=== PATIENT | male | born 1945 | race Caucasian/White ===

== ENCOUNTER 2018-10-29 09:58 | Emergency (ER) | payer MEDICARE, OTHER ==
--- OUTSIDE RECORDS SUMMARY | 2018-10-29 10:04 | XMS REPORT | Continuity of Care Document ---
:1945 External Reference #:[id number] Author Name Kelly Davis Care Team Providers Name Role Phone Eric Renee MD Primary Care Physician Unavailable Payers Date Identification Numbers Payment Provider Subscriber Policy Number: [id number] Medicare Cristofer Crane PayID: [id number] [address] [place] [address] Effective: 2017 Policy Number: [id number] [facility] Cristofer Crane Group Number: [id number] [address] PayID: [id number] [place] [address] Expires: 2017 Policy Number: [id number] [facility] Cristofer Crane Group Number: [id number] [address] PayID: [id number] [place] [address] Expires: 2013 Policy Number: [id number] Medicare Cristofer Crane PayID: [id number] [address] [place] [address] Effective: 2011 Policy Number: [id number] [employer] Maile Crane Expires: 2016 PayID: [id number] [address] [address] [place] [address] Expires: 2017 Policy Number: [id number] [employer] Maile Crane PayID: [id number] [address] [address] [place] [address] Advance Directives Description No Information Available Problems Active Problems Provider Date Coronary arteriosclerosis Jesika Smith M.D. Onset: 06/30/2011 Benign essential hypertension Jesika Smith M.D. Onset: 06/30/2011 Patient post percutaneous transluminal Jesika Smith M.D. Onset: 03/2012 coronary angioplasty Hyperlipidemia Jesika Smith M.D. Onset: 06/30/2011 Electrocardiogram abnormal Jesika Smith M.D. Onset: 06/30/2011 Essential hypertension Jesika Smith M.D. Onset: 10/22/2015 Localized, primary osteoarthritis Doug Rayo MD Onset: 12/08/2016 Knee joint effusion Doug Rayo MD Onset: 12/08/2016 Strain of muscle(s) and tendon(s) of Doug Rayo MD Onset: 09/28/2017 the rotator cuff of right shoulder, subsequent encounter Injury of shoulder region Doug Rayo MD Onset: 09/28/2017 Localized, secondary osteoarthritis of Doug Rayo MD Onset: 09/28/2017 the shoulder region Family History Description No Information Available Social History Type Date Description Comments Sex Unknown Marital Status Lives With Spouse Occupation Retired Tobacco Use Start: Unknown End: Former Cigarette Smoker Unknown Smoking Status Reviewed: 10/17/18 Former Cigarette Smoker ETOH Use Denies alcohol use Tobacco Use Start: Unknown End: Patient is a former smoker Unknown Recreational Drug Use Denies Drug Use Exercise Type/Frequency Exercises regularly 3-4x weekly Allergies, Adverse Reactions, Alerts Description No Known Drug Allergies Medications Active Medications SIG Qnty Indications Ordering Provider Date Nitrostat one sl q5min up 25tabs Qutaybeh S. 02/12/2014 0.4mg Tablets to 3 doses as Sera Smith Sub needed Altace 1 by mouth every 90caps Yvon Victor 04/01/2010 2.5mg Capsules day Sera Knight Aspirin 1 PO qd Qutaybpj S. 10/07/2006 81mg Chewtabs Sera Smith Lipitor 1 by mouth every 90tabs Qutaybeh S. 03/09/2006 10mg Tablets day Sera Smith Vitamins/Minerals 1 po qd Unknown Tablets Vit C one po qd Unknown 500mg Cod Liver Oil 1 po qd Unknown Capsules Ibuprofen 200 3 tabs by mouth Unknown 200mg once or twice Tablets daily as needed Pt states he is taking every other day History Medications Nitroglycerin 1 sl q5mins x3 50tabs Qutaybeh S. 11/22/2012 - 0.4mg Tablets as needed for Sera Smith 02/12/2014 Sub chest pain Hydrocodone/Acetaminoph 1/2 to 1 po q6h 40tabs Toby Carrillo M.D. 2011 - en prn pain 02/15/2012 5-325mg Tablets [place] 1-2 tabs po 40tabs Toby Carrillo M.D. 10/29/2011 - 5-325mg Tablets q4-6 h prn pain 02/15/2012 Altace 1 po qd Qutaybeh S. 11/04/2009 - 5mg Capsules eSra Smith 04/01/2010 Altace 1 po qd 90caps Qutaybeh S. 07/24/2009 - 2.5mg Capsules Sera Smith 11/04/2009 Altace 1 PO qd 90caps Qutaybeh S. 06/12/2008 - 5mg Capsules Sera Smith 07/24/2009 Toprol XL 1/2 PO qod 45tabs Qutaybeh S. 11/08/2007 - 25mg Tablets ER Sera Smith 06/30/2011 24HR Toprol XL 1/2 po qd 45tabs Qutaybeh S. 06/08/2006 - 25mg Tablets Sera Smith 11/08/2007 Toprol XL 1 po qd 90tabs Qutaybeh S. 03/09/2006 - 25mg Tablets Sera Smith 06/08/2006 Plavix 1 by mouth 30tabs Qutaybeh S. 03/09/2006 - 75mg Tablets twice weekly Sera Smith 02/10/2017 Altace 1 PO qd 90caps Qutaybeh S. 03/09/2006 - 2.5mg Capsules Sera Smith 06/12/2008 Aspirin 1 PO qd Qutaybeh S. 03/09/2006 - 325mg Tablets Sera Smith 10/07/2006 Toprol XL 1 po qd 30tabs Qutaybeh S. 02/11/2006 - 50mg Tablets Sera Smith 03/09/2006 Imdur one po qam 30tabs Jesika S. 02/11/2006 - 30mg Tablets Sera Smith 03/09/2006 Nitroglyn Sublingual One prn For 30tabs Qutaybeh S. 02/11/2006 - 0.4mg Chest Pain Q 5 Sera Smith 11/22/2012 Tablets Min Max 3. Medications Administered in Office Medication SIG Qnty Indications Ordering Provider Date Triamcinolone (Kenalog) Doug Rayo MD 09/28/2017 Injection Triamcinolone (Kenalog) Doug Rayo MD 02/11/2017 Injection Immunizations Description No Information Available Vital Signs Date Vital Result Comment 10/17/2018 8:27am Height 71 inches 5'11" Weight 203.00 lb Clothes/Shoes Heart Rate 58 /min Radial BP Systolic Sitting 148 mmHg Lue reg cuff BP Diastolic Sitting 70 mmHg Lue reg cuff BP Systolic Standing 144 mmHg Lue reg cuff BP Diastolic Standing 70 mmHg Lue reg cuff BMI (Body Mass Index) 28.3 kg/m2 Ejection Fraction 55% Echo 09/05/2010 05/16/2018 10:05am Height 71 inches 5'11" Weight 190.00 lb Heart Rate 56 /min BP Systolic 138 mmHg BP Diastolic 80 mmHg Respiratory Rate 16 /min Body Temperature 97.0 F BMI (Body Mass Index) 26.5 kg/m2 11/16/2017 4:07pm Height 71 inches 5'11" Weight 189.00 lb w/shoes Heart Rate 66 /min BP Systolic Sitting 130 mmHg lue reg cuff BP Diastolic Sitting 68 mmHg lue reg cuff BMI (Body Mass Index) 26.4 kg/m2 Ejection Fraction 55% echo 09/05/2010 11/09/2017 8:31am Height 71 inches 5'11" Weight 183.00 lb BP Systolic 132 mmHg BP Diastolic 70 mmHg Respiratory Rate 20 /min Pain Level 0 BMI (Body Mass Index) 25.5 kg/m2 09/28/2017 2:00pm Height 71 inches 5'11" Weight 183.00 lb BP Systolic 124 mmHg BP Diastolic 76 mmHg Respiratory Rate 20 /min Pain Level 4 BMI (Body Mass Index) 25.5 kg/m2 03/09/2017 2:48pm Height 71 inches 5'11" Weight 183.00 lb with shoes Heart Rate 62 /min BP Systolic Sitting 128 mmHg LA reg cuff BP Diastolic Sitting 78 mmHg LA reg cuff BMI (Body Mass Index) 25.5 kg/m2 Ejection Fraction 55% echo 09/05/10 03/08/2017 9:36am Heart Rate 66 /min BP Systolic 128 mmHg BP Diastolic 76 mmHg Respiratory Rate 18 /min Body Temperature 98.1 F 02/26/2017 11:16am Heart Rate 68 /min Respiratory Rate 16 /min Body Temperature 97.7 F 02/24/2017 2:25pm Height 72 inches 6'0" Weight 191.00 lb Heart Rate 60 /min BP Systolic 128 mmHg BP Diastolic 76 mmHg Respiratory Rate 18 /min Body Temperature 98.3 F BMI (Body Mass Index) 25.9 kg/m2 02/11/2017 8:28am Weight 191.00 lb Heart Rate 56 /min BP Systolic Sitting 120 mmHg BP Diastolic Sitting 70 mmHg Body Temperature 96.1 F Pain Level 4 01/19/2017 8:38am Height 72 inches 6'0" Weight 195.00 lb BP Systolic 118 mmHg BP Diastolic 76 mmHg Body Temperature 97.6 F Pain Level 0 BMI (Body Mass Index) 26.4 kg/m2 12/25/2016 9:37am Height 72 inches 6'0" Weight 195.00 lb Heart Rate 58 /min Respiratory Rate 15 /min Pain Level 4 BMI (Body Mass Index) 26.4 kg/m2 12/08/2016 1:59pm Height 72 inches 6'0" Weight 195.00 lb Heart Rate 68 /min BP Systolic 130 mmHg BP Diastolic 82 mmHg Respiratory Rate 15 /min Body Temperature 96.5 F Pain Level 4 BMI (Body Mass Index) 26.4 kg/m2 11/12/2016 8:38am Height 72 inches 6'0" Weight 195.00 lb BP Systolic 130 mmHg BP Diastolic 77 mmHg Body Temperature 97.8 F Pain Level 4 BMI (Body Mass Index) 26.4 kg/m2 11/10/2016 1:52pm Height 72 inches 6'0" Weight 195.00 lb BP Systolic 154 mmHg BP Diastolic 82 mmHg Respiratory Rate 15 /min Body Temperature 97.2 F Pain Level 4 BMI (Body Mass Index) 26.4 kg/m2 06/10/2016 3:20pm Height 72 inches 6'0" Weight 190.75 lb with shoes Heart Rate 60 /min BP Systolic Sitting 120 mmHg LA lrg cuff BP Diastolic Sitting 66 mmHg LA lrg cuff BMI (Body Mass Index) 25.9 kg/m2 Ejection Fraction 55% echo 09/05/10 10/22/2015 1:09pm Height 72 inches 6'0" Weight 192.00 lb Heart Rate 64 /min BP Systolic Sitting 138 mmHg LA, reg BP Diastolic Sitting 78 mmHg LA, reg BMI (Body Mass Index) 26.0 kg/m2 Ejection Fraction 55% 09/05/10 12/13/2014 4:13pm Height 72 inches 6'0" Weight 184.00 lb Heart Rate 66 /min BP Systolic 124 mmHg LA reg BP Diastolic 72 mmHg LA reg BMI (Body Mass Index) 25.0 kg/m2 Ejection Fraction 55% 08/26/10 ECHO 05/03/2014 8:57am Height 72 inches 6'0" Weight 189.75 lb Heart Rate 56 /min BP Systolic Sitting 158 mmHg LA, reg BP Diastolic Sitting 70 mmHg LA, reg BMI (Body Mass Index) 25.7 kg/m2 07/31/2013 10:46am Height 72 inches 6'0" Weight 183.00 lb Heart Rate 64 /min BP Systolic Sitting 140 mmHg BP Diastolic Sitting 62 mmHg BMI (Body Mass Index) 24.8 kg/m2 11/22/2012 3:36pm Height 72 inches 6'0" Weight 184.00 lb Heart Rate 50 /min BP Systolic Sitting 112 mmHg BP Diastolic Sitting 62 mmHg Respiratory Rate 16 /min BMI (Body Mass Index) 25.0 kg/m2 02/15/2012 10:23am Height 72 inches 6'0" Weight 178.00 lb Heart Rate 64 /min BP Systolic 100 mmHg BP Diastolic 56 mmHg BMI (Body Mass Index) 24.1 kg/m2 08/14/2011 3:24pm Height 72 inches 6'0" Weight 184.00 lb Heart Rate 47 /min BP Systolic 126 mmHg BP Diastolic 68 mmHg BMI (Body Mass Index) 25.0 kg/m2 06/30/2011 3:11pm Height 72 inches 6'0" Weight 189.00 lb with boots Heart Rate 41 /min BP Systolic 126 mmHg BP Diastolic 80 mmHg BMI (Body Mass Index) 25.6 kg/m2 10/13/2010 4:04pm Height 72 inches 6'0" Weight 183.00 lb Heart Rate 52 /min BP Systolic Sitting 126 mmHg BP Diastolic Sitting 68 mmHg BP Systolic Standing 140 mmHg BP Diastolic Standing 88 mmHg BMI (Body Mass Index) 24.8 kg/m2 04/01/2010 4:07pm Height 72 inches 6'0" Weight 210.00 lb Heart Rate 51 /min BP Systolic Sitting 150 mmHg recheck 144/76 BP Diastolic Sitting 80 mmHg recheck 144/76 BMI (Body Mass Index) 28.5 kg/m2 11/04/2009 2:12pm Height 72 inches 6'0" Weight 208.00 lb Heart Rate 60 /min BP Systolic Sitting 150 mmHg BP Diastolic Sitting 70 mmHg BP Systolic Standing 136 mmHg BP Diastolic Standing 80 mmHg BMI (Body Mass Index) 28.2 kg/m2 08/29/2009 3:10pm Height 72 inches 6'0" Weight 206.00 lb Heart Rate 55 /min BP Systolic Sitting 140 mmHg L BP Diastolic Sitting 70 mmHg L BMI (Body Mass Index) 27.9 kg/m2 11/29/2008 3:19pm Height 72 inches 6'0" Weight 199.00 lb Heart Rate 51 /min BP Systolic Sitting 106 mmHg L BP Diastolic Sitting 60 mmHg L BMI (Body Mass Index) 27.0 kg/m2 06/12/2008 9:14am Height 72 inches 6'0" Weight 195.00 lb Heart Rate 63 /min BP Systolic Sitting 120 mmHg BP Diastolic Sitting 60 mmHg Respiratory Rate 16 /min BMI (Body Mass Index) 26.4 kg/m2 11/08/2007 3:28pm Height 72 inches 6'0" Weight 194.00 lb Heart Rate 42 /min BP Systolic Sitting 120 mmHg BP Diastolic Sitting 64 mmHg Respiratory Rate 16 /min BMI (Body Mass Index) 26.3 kg/m2 04/28/2007 2:39pm Height 72 inches 6'0" Weight 192.00 lb Heart Rate 78 /min BP Systolic Sitting 130 mmHg BP Diastolic Sitting 80 mmHg BMI (Body Mass Index) 26.0 kg/m2 01/13/2007 3:26pm Height 72 inches 6'0" Weight 190.00 lb Heart Rate 60 /min BP Systolic Sitting 114 mmHg L BP Diastolic Sitting 64 mmHg L BMI (Body Mass Index) 25.8 kg/m2 10/07/2006 2:52pm Height 72 inches 6'0" Weight 191.00 lb Heart Rate 52 /min BP Systolic Sitting 100 mmHg BP Diastolic Sitting 70 mmHg BP Systolic Standing 90 mmHg BP Diastolic Standing 64 mmHg BMI (Body Mass Index) 25.9 kg/m2 06/08/2006 2:04pm Height 72 inches 6'0" Weight 189.00 lb Heart Rate 46 /min BP Systolic Sitting 130 mmHg BP Diastolic Sitting 64 mmHg BMI (Body Mass Index) 25.6 kg/m2 03/09/2006 2:43pm Height 72 inches 6'0" Weight 199.00 lb Heart Rate 48 /min BP Systolic Sitting 112 mmHg BP Diastolic Sitting 60 mmHg BP Systolic Standing 112 mmHg BP Diastolic Standing 60 mmHg Respiratory Rate 16 /min BMI (Body Mass Index) 27.0 kg/m2 Results Test Date Facility Test Result H/L Range Note Basic Metabolic 11/03/2017 [facility] Sodium 135 mmol/L Low 139-[address] [place] [address] [phone] Potassium 4.0 mmol/L N 3.5-5.0 Chloride 102 mmol/L N 101-111 Co2 Carbon Dioxide 26 mmol/L N 22-32 Anion Gap 7 mmol/L N 2-11 Glucose 118 mg/dL High 70-100 Blood Urea Nitrogen 23 mg/dL N 6-24 Creatinine 0.86 mg/dL N 0.67-1.17 BUN/Creatinine Ratio 26.7 High 8-20 Calcium 9.1 mg/dL N 8.6-10.3 Egfr Non- 87.7 >60 Egfr 112.7 >60 1 CBC Auto Diff 04/12/2017 [facility] White Blood 7.5 10^3/uL N 3.5-10.[address] [place] [address] [phone] Red Blood Count 4.78 10^6/uL N 4.0-5.4 Hemoglobin 15.1 g/dL N 14.0-18.0 Hematocrit 43 % N 42-52 Mean Corpuscular Volume 90 fL N 80-94 Mean Corpuscular Hemoglobin 32 pg High 27-31 Mean Corpuscular HGB Conc 35 g/dL N 31-36 Red Cell Distribution Width 13 % N 10.5-15 Platelet Count 285 10^3/uL N 150-450 Mean Platelet Volume 8 um3 N 7.4-10.4 Abs Neutrophils 4.2 10^3/uL N 1.5-7.7 Abs Lymphocytes 2.0 10^3/uL N 1.0-4.8 Abs Monocytes 0.7 10^3/uL N 0-0.8 Abs Eosinophils 0.5 10^3/uL N 0-0.6 Abs Basophils 0.1 10^3/uL N 0-0.2 Abs Nucleated RBC 0.01 10^3/uL N Granulocyte % 56.1 % N 38-83 Lymphocyte % 26.4 % N 25-47 Monocyte % 9.8 % High 1-9 Eosinophil % 6.8 % High 0-6 Basophil % 0.9 % N 0-2 Nucleated Red Blood Cells % 0.1 N Basic Metabolic Panel 04/12/2017 [facility] Sodium 140 mmol/L N 133-145 [address] [place] [address] [phone] Potassium 4.7 mmol/L N 3.5-5.0 Chloride 105 mmol/L N 101-111 Co2 Carbon Dioxide 31 mmol/L N 22-32 Anion Gap 4 mmol/L N 2-11 Glucose 113 mg/dL High 70-100 Blood Urea Nitrogen 18 mg/dL N 6-24 Creatinine 0.93 mg/dL N 0.67-1.17 BUN/Creatinine Ratio 19.4 N 8-20 Calcium 9.4 mg/dL N 8.6-10.3 Egfr Non- 80.3 N >60 Egfr 103.3 N >60 2 Lipid Profile 04/12/2017 [facility] Triglycerides 66 mg/dL N 3 (Trig/Chol/HDL) [address] [place] [address] [phone] Cholesterol 141 mg/dL N 4 HDL Cholesterol 45.9 mg/dL N 5 LDL Cholesterol 82 mg/dL N 6 Liver Function 04/12/2017 [facility] Total Protein 7.0 g/dL N 6.4-8.9 Panel [address] [place] [address] [phone] Albumin 3.8 g/dL N 3.2-5.2 Globulin 3.2 g/dL N 2-4 Albumin/Globulin Ratio 1.2 N 1-3 Total Bilirubin 0.50 mg/dL N 0.2-1.0 Direct Bilirubin 0.10 mg/dL N 0.03-0.18 Indirect Bilirubin 0.4 mg/dL N 0.3-1.0 Alkaline Phosphatase 44 U/L N 34-104 Alt 36 U/L N 7-52 Ast 30 U/L N 13-39 Laboratory test 03/02/2017 [facility] Blood Urea 25 mg/dL High 6-[address] [place] [address] [phone] Creatinine 03/02/2017 [facility] Creatinine 0.97 mg/dL N 0.67- 1.[address] [place] [address] [phone] Egfr Non- 76.5 N >60 Egfr 98.4 N >60 7 CBC Auto Diff 02/16/2013 [facility] White Blood 7.2 10^3/uL 4.8-10.[address] [place] [address] [phone] Red Blood Count 4.69 10^6/uL 4.0-5.4 Hemoglobin 14.9 g/dL 14.0-18.0 Hematocrit 43 % 42-52 Mean Corpuscular Volume 92 fL 80-94 Mean Corpuscular Hemoglobin 32 pg High 27-31 Mean Corpuscular HGB Conc 35 g/dL 31-36 Red Cell Distribution Width 13 % 10.5-15 Platelet Count 275 10^3/uL 150-450 Mean Platelet Volume 8 um3 7.4-10.4 Abs Neutrophils 3.3 10^3/uL 1.5-7.7 Abs Lymphocytes 1.9 10^3/uL 1.0-4.8 Abs Monocytes 0.8 10^3/uL 0-0.8 Abs Eosinophils 1.2 10^3/uL High 0-0.6 Abs Basophils 0.1 10^3/uL 0-0.2 Abs Nucleated RBC 0 10^3/uL Granulocyte % 45.3 % 38-83 Lymphocyte % 26.5 % 25-47 Monocyte % 10.7 % High 1-9 Eosinophil % 16.8 % High 0-6 Basophil % 0.7 % 0-2 Nucleated Red Blood Cells % 0.1 Urinalysis 02/16/2013 [facility] Urine Color Yellow [address] [place] [address] [phone] Urine Appearance Clear Urine Specific [place] 1.020 1.010-1.030 Urine Esterase Negative Negative Urine Nitrate Negative Negative Urine Urobilinogen Negative E.U./dL Negative Urine Protein Negative mg/dL Negative Urine pH 6.5 5-9 Urine Blood Negative Negative Urine Ketones Negative mg/dL Negative Urine Bilirubin Negative Negative Urine Glucose Negative mg/dL Negative Liver Function 02/16/2013 [facility] Total Protein 7.0 g/dL 6.2-8.1 Panel [address] [place] [address] [phone] Albumin 3.7 g/dL 3.2-5.2 Globulin 3.3 g/dL 2-4 Albumin/Globulin Ratio 1.1 1-3 Total Bilirubin 0.8 mg/dL 0.4-1.5 Direct Bilirubin 0.1 mg/dL 0.1-0.5 Indirect Bilirubin 0.7 mg/dL 0.3-1.0 Alkaline Phosphatase 41 U/L 30-110 Alt 61 U/L High 14-54 Ast 77 U/L High 12-42 Lipid Profile 02/16/2013 [facility] Triglycerides 44 mg/dL 40 -200 (Trig/Chol/HDL) [address] [place] [address] [phone] Cholesterol 129 mg/dL Less than 200 HDL Cholesterol 39 mg/dL Low 40-60 8 Cholesterol/HDL Ratio 3.3 Average 1-4.44 LDL Cholesterol 81.2 Less Than 100 9 Basic Metabolic Panel 02/16/2013 [facility] Sodium 137 mmol/L 133-145 [address] [place] [address] [phone] Potassium 5.0 mmol/L 3.5-5.0 Chloride 102 mmol/L 101-111 Co2 Carbon Dioxide 31.0 mmol/L 22-32 Anion Gap 4.0 mmol/L 2-11 Glucose 126 mg/dL High 70-100 Blood Urea Nitrogen 16 mg/dL 6-24 Creatinine 1.00 mg/dL 0.50-1.40 BUN/Creatinine Ratio 16.0 8-20 Calcium 9.2 mg/dL 8.1-9.9 Egfr Non- 74.8 >60 Egfr 96.1 >60 10 Liver Function 03/07/2012 [facility] Total Protein 7.1 GM/DL 6.2-8.1 Panel [address] [place] [address] [phone] Albumin 3.8 GM/DL 3.2-5.2 Globulin 3.3 GM/DL 2-4 Albumin/Globulin Ratio 1.2 1-3 Bilirubin Total 0.5 mg/dL 0.4-1.5 11 Bilirubin Direct 0.1 mg/dL 0.1-0.5 Indirect Bilirubin 0.4 mg/dL 0.3-1.0 12 Alkaline Phosphatase 49 U/L 39-117 Alt (SGPT) 49 U/L 17-63 Ast (Sgot) 36 U/L 12-42 Lipid Profile 03/07/2012 [facility] Triglyceride 61 mg/dL 40- 200 (Trig/Chol/HDL) [address] [place] [address] [phone] Cholesterol 137 mg/dL Less Than 200 13 High Density Lipoprotein 44 mg/dL 40-60 14 Cholesterol/HDL Ratio 3.11 AVERAGE 1-4.97 Low Density Lipoprotein 81 mg/dL Less Than 100 15 Basic Metabolic Panel 03/07/2012 [facility] Sodium 139 mmol/L 135-145 [address] [place] [address] [phone] Potassium 5.2 mmol/L High 3.5-5.0 Chloride 107 mmol/L 101-111 Co2 (Carbon Dioxide) 29.0 mmol/L 22-32 Anion Gap 3.0 mmol/L 2-11 16 Glucose 115 mg/dL High 70-100 BUN 23 mg/dL 6-24 Creatinine 1.1 mg/dL 0.50-1.40 One Over Creatinine 0.90 BUN/Creatinine Ratio 20.9 High 8-20 Calcium 9.0 mg/dL 8.1-9.9 eGFR Non- 67.2 > 60 eGFR 86.4 > 60 17 CBC Auto Diff 03/07/2012 [facility] White Blood 5.7 CUMM 4.8- 10.[address] [place] [address] [phone] Red Cell Count 4.51 CUMM Low 4.6-6.2 Hemoglobin 14.0 g/dL 14.0-18.0 Hematocrit 41 % Low 42-52 Mean Corpuscular Volume 91 um3 80-94 Mean Corpuscular Hemoglob 31 pg 27-31 Mean Corpuscular HGB Cone 34 g/dL 32-36 Redcell Distribution WDTH 13 % 10.5-15 Platelet Count 255 CUMM 150-450 Mean Platelet Volume 8.0 um3 7.4-10.4 Gran % 49.0 % 38-83 Lymph % 30.5 % 20-45 Mononuclear % 10.9 % High 1-9 Eosinophil % 8.4 % High 0-6 Basophil % 1.2 % 0-2 Abs Lymphs 1.7 1.0-4.8 Abs Mononuclear 0.6 0-0.8 Absolute Neutrophil Count 2.8 1.5-7.7 Abs Eosinophils 0.5 0-0.6 Abs Basophils 0.1 0-0.2 Urinalysis W/Microscopic 03/07/2012 [facility] Ua Color YELLOW Yellow [address] [place] [address] [phone] Appearance-Urine CLEAR Clear Specific [place]-Ur 1.023 1.010-1.030 Esterase-Urine TRACE Abnormal Negative Nitrite NEGATIVE Negative [id number] NEGATIVE Negative Protein-Urine NEGATIVE Negative PH-Urine 6.0 5-9 Blood-Urine NEGATIVE Negative Ketones-Urine NEGATIVE Negative Bilirubin-Ur NEGATIVE Negative Glucose-Urine NEGATIVE Negative WBC-Urine 0-2 0-5 RBC-Urine 3-5 0-2 Epith Cells-Ur RARE None Crystals-Urine FEW None 18 Laboratory test 03/10/2011 [facility] CPK (Creatine 134 U/L 0 -[address] Kinase) [place] [address] [phone] Creatinine 02/25/2011 [facility] Creatinine 0.9 0.50-1.[address] mg/[place] [address] [phone] One Over Creatinine 1.11 eGFR Non- 85.0 > 60 eGFR 109.3 > 60 19 Lipid Profile 02/10/2011 [facility] Triglyceride 63 mg/dL 40- 200 (Trig/Chol/HDL) [address] [place] [address] [phone] Cholesterol 138 mg/dL Less Than 200 20 High Density Lipoprotein 46 mg/dL 40-60 21 Cholesterol/HDL Ratio 3.00 AVERAGE 1-4.97 Low Density Lipoprotein 79 mg/dL Less Than 100 22 Comp Metabolic Panel 02/10/2011 [facility] Sodium 139 mmol/L 135-[address] [place] [address] [phone] Potassium 4.5 mmol/L 3.5-5.0 Chloride 103 mmol/L 101-111 Co2 (Carbon Dioxide) 31.0 mmol/L 22-32 Anion Gap 5.0 mmol/L 2-11 23 Glucose 103 mg/dL High 70-100 BUN 17 mg/dL 6-24 Creatinine 0.9 mg/dL 0.50-1.40 One Over Creatinine 1.11 BUN/Creatinine Ratio 18.9 8-20 Calcium 9.1 mg/dL 8.1-9.9 Total Protein 7.0 GM/DL 6.2-8.1 Albumin 4.1 GM/DL 3.2-5.2 Globulin 2.9 GM/DL 2-4 Albumin/Globulin Ratio 1.4 1-3 Bilirubin Total 1.0 mg/dL 0.4-1.5 24 Alkaline Phosphatase 47 U/L 39-117 Alt (SGPT) 43 U/L 17-63 Ast (Sgot) 48 U/L High 12-42 eGFR Non- 85.0 > 60 eGFR 109.3 > 60 25 Lipid Panel - JFM 02/10/2011 [facility] CPK (Creatine 453 U/L High 0-[address] Kinase) [place], [place] [address] [phone] Urinalysis 08/16/2010 [facility] Ua Color YELLOW Yellow [address] [place] [address] [phone] Appearance-Urine CLEAR Clear Specific [place]-Ur 1.006 Low 1.010-1.030 Esterase-Urine NEGATIVE Negative Nitrite NEGATIVE Negative Fjcrlsrarwjr-Gw-[id number] NEGATIVE Negative Protein-Urine NEGATIVE Negative PH-Urine 6.0 5-9 Blood-Urine NEGATIVE Negative Ketones-Urine NEGATIVE Negative Bilirubin-Ur NEGATIVE Negative Glucose-Urine NEGATIVE Negative Laboratory test 08/16/2010 [facility] CPK (Creatine 211 U/L High 0-[address] Kinase) [place] [address] [phone] CBC With 08/16/2010 [facility] White Blood 6.7 CUMM 4.8-10.8 Electronic Diff [address] [address] [phone] Red Cell Count 4.45 CUMM Low 4.6-6.2 Hemoglobin 13.7 g/dL Low 14.0-18.0 Hematocrit 40 % Low 42-52 Mean Corpuscular Volume 90 um3 80-94 Mean Corpuscular Hemoglob 31 pg 27-31 Mean Corpuscular HGB Cone 34 g/dL 32-36 Redcell Distribution WDTH 13 % 10.5-15 Platelet Count 256 CUMM 150-450 Mean Platelet Volume 8.6 um3 7.4-10.4 Gran % 56.8 % 38-83 Lymph % 26.0 % 25-47 Mononuclear % 11.1 % High 1-9 Eosinophil % 5.5 % 0-6 Basophil % 0.6 % 0-2 Abs Lymphs 1.7 1.0-4.8 Abs Mononuclear 0.7 0-0.8 Absolute Neutrophil Count 3.8 1.5-7.7 Abs Eosinophils 0.4 0-0.6 Abs Basophils 0 0-0.2 Comp Metabolic Panel 08/16/2010 [facility] Sodium 135 mmol/L 135-[address] [place] [address] [phone] Potassium 4.0 mmol/L 3.5-5.0 Chloride 103 mmol/L 101-111 Co2 (Carbon Dioxide) 28.0 mmol/L 22-32 Anion Gap 4.0 mmol/L 2-11 26 Glucose 103 mg/dL High 70-100 BUN 23 mg/dL 6-24 Creatinine 1.00 mg/dL 0.50-1.40 One Over Creatinine 1.00 BUN/Creatinine Ratio 23.0 High 8-20 Calcium 8.8 mg/dL 8.1-9.9 Total Protein 7.2 GM/DL 6.2-8.1 Albumin 3.9 GM/DL 3.2-5.2 Globulin 3.3 GM/DL 2-4 Albumin/Globulin Ratio 1.2 1-3 Bilirubin Total 0.7 mg/dL 0.4-1.5 27 Alkaline Phosphatase 47 U/L 39-117 Alt (SGPT) 43 U/L 17-63 Ast (Sgot) 38 U/L 12-42 eGFR Non- 75.2 > 60 eGFR 96.7 > 60 28 Lipid Profile 08/16/2010 [facility] Triglyceride 32 mg/dL Low 40-200 (Trig/Chol/HDL) [address] [place] [address] [phone] Cholesterol 120 mg/dL Less Than 200 29 High Density Lipoprotein 42 mg/dL 40-60 30 Cholesterol/HDL Ratio 2.86 AVERAGE 1-4.97 Low Density Lipoprotein 72 mg/dL Less Than 100 31 Liver Function 08/16/2010 [facility] Bilirubin Direct 0.1 mg/dL 0.1-0.5 Panel [address] [place] [address] [phone] Indirect Bilirubin 0.6 mg/dL 0.3-1.0 32 1 Because ethnic data is not always readily available, this report includes an eGFR for both -Americans and non- Americans. The National Kidney Disease Education Program (NKDEP) does not endorse the use of the MDRD equation for patients that are not between the ages of 18 and 70, are , have extremes of body size, muscle mass, or nutritional status, or are non- or non-. According to the National Kidney Foundation, irrespective of diagnosis, the stage of the disease is based on the level of kidney function: Stage Description GFR(mL/min/1.73 m(2)) 1 Kidney damage with normal or decreased GFR 90 2 Kidney damage with mild decrease in GFR 60-89 3 Moderate decrease in GFR 30-59 4 Severe decrease in GFR 15-29 5 Kidney failure <15 (or dialysis) 2 Because ethnic data is not always readily available, this report includes an eGFR for both -Americans and non- Americans. The National Kidney Disease Education Program (NKDEP) does not endorse the use of the MDRD equation for patients that are not between the ages of 18 and 70, are , have extremes of body size, muscle mass, or nutritional status, or are non- or non-. According to the National Kidney Foundation, irrespective of diagnosis, the stage of the disease is based on the level of kidney function: Stage Description GFR(mL/min/1.73 m(2)) 1 Kidney damage with normal or decreased GFR 90 2 Kidney damage with mild decrease in GFR 60-89 3 Moderate decrease in GFR 30-59 4 Severe decrease in GFR 15-29 5 Kidney failure <15 (or dialysis) 3 Desirable: <150 Borderline High: 150-199 High: 200-499 Very High: >500 4 Desirable: <200 Borderline High: 200-239 High: >239 5 Low: <40 Desirable: 40-60 High: >60 6 Desirable: <100 Near Optimal: 100-129 Borderline High: 130-159 High: 160-189 Very High: >189 7 Because ethnic data is not always readily available, this report includes an eGFR for both -Americans and non- Americans. The National Kidney Disease Education Program (NKDEP) does not endorse the use of the MDRD equation for patients that are not between the ages of 18 and 70, are , have extremes of body size, muscle mass, or nutritional status, or are non- or non-. According to the National Kidney Foundation, irrespective of diagnosis, the stage of the disease is based on the level of kidney function: Stage Description GFR(mL/min/1.73 m(2)) 1 Kidney damage with normal or decreased GFR 90 2 Kidney damage with mild decrease in GFR 60-89 3 Moderate decrease in GFR 30-59 4 Severe decrease in GFR 15-29 5 Kidney failure <15 (or dialysis) 8 HDL Interpretation: Undesirable: High Risk: Less than 40 mg/dL Desirable: Low Risk: Greater than 60 mg/dL 9 LDL Interpretation: Low Risk Optimal Level: LDL Less than 100 mg/dL Near or Above Optimal: LDL 100-129 mg/dL Borderline High Risk: LDL 130-159 mg/dL High Risk: LDL 160-189 mg/dL Very High Risk: LDL Greater than 189 mg/dL 10 Because ethnic data is not always readily available, this report includes an eGFR for both -Americans and non- Americans. The National Kidney Disease Education Program (NKDEP) does not endorse the use of the MDRD equation for patients that are not between the ages of 18 and 70, are , have extremes of body size, muscle mass, or nutritional status, or are non- or non-. According to the National Kidney Foundation, irrespective of diagnosis, the stage of the disease is based on the level of kidney function: Stage Description GFR(mL/min/1.73 m(2)) 1 Kidney damage with normal or decreased GFR 90 2 Kidney damage with mild decrease in GFR 60-89 3 Moderate decrease in GFR 30-59 4 Severe decrease in GFR 15-29 5 Kidney failure <15 (or dialysis) 11 A metabolite of Naproxen, O-desmethylnaproxen, has been shown to interfere with the Jendrassik-Mica method for measuring total bilirubin. Samples from patients who have taken Naproxen have shown spurious elevation in total bilirubin levels. 12 Please note updated reference range, effective 01/09/10 13 CHOLESTEROL INTERPRETATION: Desirable: Less than 200 MG/DL Borderline-High Risk: 200-239 MG/DL High-Risk: 240 MG/DL and over 14 HDL INTERPRETATION: Undesirable: High Risk: Less than 40 MG/DL Desirable: Low Risk: Greater than 60 MG/DL 15 LDL INTERPRETATION: Low Risk Optimal Level: LDL Less than 100 MG/DL Near or Above Optimal: LDL 100-129 MG/DL Borderline High Risk: LDL 130-159 MG/DL High Risk: LDL 160-189 MG/DL Very High Risk: LDL Greater than 189 MG/DL 16 Anion gap measurement may be of limited value in the presence of any alkalosis, especially in a combined acid base disorder. . 17 Because ethnic data is not always readily available, this report includes an eGFR for both -Americans and non- Americans. The National Kidney Disease Education Program (NKDEP) does not endorse the use of the MDRD equation for patients that are not between the ages of 18 and 70, are , have extremes of body size, muscle mass, or nutritional status, or are non- or non-. According to the National Kidney Foundation, irrespective of diagnosis, the stage of the disease is based on the level of kidney function: Stage Description GFR(mL/min/1.73 m(2)) 1 Kidney damage with normal or decreased GFR 90 2 Kidney damage with mild decrease in GFR 60-89 3 Moderate decrease in GFR 30-59 4 Severe decrease in GFR 15-29 5 Kidney failure <15 (or dialysis) 18 CALCIUM OXALATE 19 Because ethnic data is not always readily available, this report includes an eGFR for both -Americans and non- Americans. The National Kidney Disease Education Program (NKDEP) does not endorse the use of the MDRD equation for patients that are not between the ages of 18 and 70, are , have extremes of body size, muscle mass, or nutritional status, or are non- or non-. According to the National Kidney Foundation, irrespective of diagnosis, the stage of the disease is based on the level of kidney function: Stage Description GFR(mL/min/1.73 m(2)) 1 Kidney damage with normal or decreased GFR 90 2 Kidney damage with mild decrease in GFR 60-89 3 Moderate decrease in GFR 30-59 4 Severe decrease in GFR 15-29 5 Kidney failure <15 (or dialysis) 20 CHOLESTEROL INTERPRETATION: Desirable: Less than 200 MG/DL Borderline-High Risk: 200-239 MG/DL High-Risk: 240 MG/DL and over 21 HDL INTERPRETATION: Undesirable: High Risk: Less than 40 MG/DL Desirable: Low Risk: Greater than 60 MG/DL 22 LDL INTERPRETATION: Low Risk Optimal Level: LDL Less than 100 MG/DL Near or Above Optimal: LDL 100-129 MG/DL Borderline High Risk: LDL 130-159 MG/DL High Risk: LDL 160-189 MG/DL Very High Risk: LDL Greater than 189 MG/DL 23 Anion gap measurement may be of limited value in the presence of any alkalosis, especially in a combined acid base disorder. . 24 A metabolite of Naproxen, O-desmethylnaproxen, has been shown to interfere with the Jendrassik-Mica method for measuring total bilirubin. Samples from patients who have taken Naproxen have shown spurious elevation in total bilirubin levels. 25 Because ethnic data is not always readily available, this report includes an eGFR for both -Americans and non- Americans. The National Kidney Disease Education Program (NKDEP) does not endorse the use of the MDRD equation for patients that are not between the ages of 18 and 70, are , have extremes of body size, muscle mass, or nutritional status, or are non- or non-. According to the National Kidney Foundation, irrespective of diagnosis, the stage of the disease is based on the level of kidney function: Stage Description GFR(mL/min/1.73 m(2)) 1 Kidney damage with normal or decreased GFR 90 2 Kidney damage with mild decrease in GFR 60-89 3 Moderate decrease in GFR 30-59 4 Severe decrease in GFR 15-29 5 Kidney failure <15 (or dialysis) 26 Anion gap measurement may be of limited value in the presence of any alkalosis, especially in a combined acid base disorder. . 27 A metabolite of Naproxen, O-desmethylnaproxen, has been shown to interfere with the Jendrassik-Mica method for measuring total bilirubin. Samples from patients who have taken Naproxen have shown spurious elevation in total bilirubin levels. 28 Because ethnic data is not always readily available, this report includes an eGFR for both -Americans and non- Americans. The National Kidney Disease Education Program (NKDEP) does not endorse the use of the MDRD equation for patients that are not between the ages of 18 and 70, are , have extremes of body size, muscle mass, or nutritional status, or are non- or non-. According to the National Kidney Foundation, irrespective of diagnosis, the stage of the disease is based on the level of kidney function: Stage Description GFR(mL/min/1.73 m(2)) 1 Kidney damage with normal or decreased GFR 90 2 Kidney damage with mild decrease in GFR 60-89 3 Moderate decrease in GFR 30-59 4 Severe decrease in GFR 15-29 5 Kidney failure <15 (or dialysis) 29 CHOLESTEROL INTERPRETATION: Desirable: Less than 200 MG/DL Borderline-High Risk: 200-239 MG/DL High-Risk: 240 MG/DL and over 30 HDL INTERPRETATION: Undesirable: High Risk: Less than 40 MG/DL Desirable: Low Risk: Greater than 60 MG/DL 31 LDL INTERPRETATION: Low Risk Optimal Level: LDL Less than 100 MG/DL Near or Above Optimal: LDL 100-129 MG/DL Borderline High Risk: LDL 130-159 MG/DL High Risk: LDL 160-189 MG/DL Very High Risk: LDL Greater than 189 MG/DL 32 Please note updated reference range, effective 01/09/10 Procedures Date Code Description Status 10/17/2018 59171 EKG Tracing & Interpretation Completed 11/16/2017 26057 EKG Tracing & Interpretation Completed 09/28/2017 67687 Inject/Drain Joint/Bursa Major W/O US Completed 03/09/2017 89907 EKG Tracing & Interpretation Completed 02/11/2017 02672 Inject/Drain Joint/Bursa Major W/O US Completed 06/10/2016 20550 EKG Tracing & Interpretation Completed 10/22/2015 98082 EKG Tracing & Interpretation Completed 12/13/2014 85788 EKG Tracing & Interpretation Completed 05/03/2014 86482 EKG Tracing & Interpretation Completed 07/31/2013 84356 EKG Tracing & Interpretation Completed 11/22/2012 16629 EKG Tracing & Interpretation Completed 02/15/2012 58674 EKG Tracing & Interpretation Completed 11/05/2011 21267 Arthroscopy,Knee,Meniscectomy Medial Or Lateral Completed 11/05/2011 47138 Arthroscopy,Knee,Meniscectomy Medial Or Lateral Completed 08/14/2011 87921 EKG Tracing & Interpretation Completed 08/10/2011 94448 Xray Knee 3 Views Completed 08/10/2011 86975 Rad Exam; Knee, Ap&L Completed 07/13/2011 09874 Holter Monitoring 24 HR New Completed 06/30/2011 90049 EKG Tracing & Interpretation Completed 09/05/2010 07938 ECHO Transthoracic, Real-Time 2D With Doppler And Color Completed Flow 09/03/2010 79198 ECHO Stress Test Incl Perf Contiuous ekg Monitoring W/Phys Completed Superv 04/01/2010 84805 EKG Tracing & Interpretation Completed 10/29/2009 24230 Arthroscopy,Knee,Meniscectomy Medial Or Lateral Completed 10/29/2009 83257 Arthroscopy,Knee,Meniscectomy Medial Or Lateral Completed 09/04/2009 92171 Rad Exam; Knee Comp Completed 08/29/2009 27119 EKG Tracing & Interpretation Completed 11/29/2008 57656 EKG Tracing & Interpretation Completed 11/23/2008 40886 ECHO Stress Test Incl Perf Contiuous ekg Monitoring W/Phys Completed Superv 11/23/2008 41553 ECHO Stress Test Incl Perf Contiuous ekg Monitoring W/Phys Completed Superv 11/21/2008 79051 ECHO Transthorasic Realtime 2D W Doppler & Color Flow Hosp Completed 06/12/2008 14195 EKG Tracing & Interpretation Completed 11/08/2007 89260 EKG Tracing & Interpretation Completed 11/02/2007 99519 Echocardiogram Completed 11/02/2007 78785 Echocardiogram Completed 11/02/2007 74009 Pulse Doppler & Continuous Wave Completed 11/02/2007 35536 Color Doppler Completed 11/02/2007 60273 Color Doppler Completed 10/28/2007 19455 ECHO/Stress Completed 10/28/2007 30387 ECHO/Stress Completed 10/28/2007 54692 ECHO/Stress Completed 10/28/2007 42822 Stress Test Completed 10/28/2007 54453 Stress Test Completed 04/28/2007 29537 EKG Tracing & Interpretation Completed 04/28/2007 28054 EKG Tracing & Interpretation Completed 10/12/2006 31626 ECHO/Stress Completed 10/12/2006 49726 Color Doppler Completed 10/12/2006 98480 Color Doppler Completed 10/12/2006 18346 Pulse Doppler & Continuous Wave Completed 10/12/2006 26973 Echocardiogram Completed 10/12/2006 41373 Echocardiogram Completed 10/12/2006 64054 Stress Test Completed 10/12/2006 32854 Stress Test Completed 10/07/2006 26423 EKG Tracing & Interpretation Completed 10/07/2006 82176 EKG Tracing & Interpretation Completed 06/08/2006 83126 EKG Tracing & Interpretation Completed 06/08/2006 75989 EKG Tracing & Interpretation Completed 02/17/2006 19482 EKG, Interpretation Only Completed 02/17/2006 54000 EKG, Interpretation Only Completed 02/17/2006 56700 Left Heart Catheterization Completed 02/17/2006 86363 Inj Proc LFT Vent/LFT Atrl Angio Completed 02/17/2006 99862 Inj Proc LFT Vent/LFT Atrl Angio Completed 02/17/2006 46542 Coronary Angiography Completed 02/17/2006 36995 S/I/R Inj Proc Vent And Or Atrial Completed 02/17/2006 72702 S/I/R Inj Proc Vent And Or Atrial Completed 02/17/2006 19540 Selective Coronary Angioplasty Completed 02/11/2006 88864 ECHO/Stress Completed 02/11/2006 23984 ECHO/Stress Completed 02/11/2006 58380 Color Doppler Completed 02/11/2006 92421 Pulse Doppler & Continuous Wave Completed 02/11/2006 14555 Pulse Doppler & Continuous Wave Completed 02/11/2006 53947 Echocardiogram Completed 02/11/2006 03912 Stress Test Completed Encounters Type Date Location Provider Dx Diagnosis Office Visit 05/16/2018 [facility], R10.31 Right lower 9:30a Of Nora MARADIAGA, FACS quadrant pain [facility] 4:20p Sera Smith disease of [place] coronary artery w/o ang pctrs I10 Essential (primary) hypertension Z98.61 Coronary angioplasty status E78.4 Other hyperlipidemia R94.31 Abnormal electrocardiogram [ECG] [EKG] Office Visit 11/09/2017 [facility] Doug Rayo, M19.211 Secondary 8:30a Services Of MD toscano C.M.A. right shoulder S46.011D Strain of musc/tend the rotator cuff of right shoulder, subs S46.101A Unsp injury of musc/fasc/tend long hd bicep, right arm, init S46.111D Strain of musc/fasc/tend long hd bicep, right arm, subs Office Visit 03/09/2017 3:00p [facility] S. 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 right shoulder M25.511 Pain in right shoulder M19.011 Primary osteoarthritis, right shoulder Office Visit 01/19/2017 Orthopedic Marcel M19.172 Post-traumatic 8:45a Services Of Sera Vincent, left C.M.A. 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 knee M25.461 Effusion, right knee Office Visit 11/12/2016 [facility] Marcel M19.072 Primary 8:30a Services Of Sera Vincent osteoarthritis, left C.M.A. ankle and foot Office Visit 11/10/2016 [facility] Doug Rayo, M17.11 Unilateral primary 1:30p Services Of osteoarthritis, C.M.A. right knee Office Visit 06/10/2016 [facility] S. I25.10 [facility] 3:40p Cardiology Luis, of [place] coronary M.D. artery w/o ang pctrs I10 Essential (primary) hypertension Z98.61 Coronary angioplasty status E78.4 Other hyperlipidemia Office Visit 10/22/2015 1:20p [facility] S. 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 414.01 Coronary 4:20p Christelle Smith M.D. Atherosclerosis [place] 401.1 Hypertension Benign V45.82 Percutaneous Transluminal Coronary Angioplas Postsurg Status 272.4 Hyperlipidemia Other Unspec Office Visit 05/03/2014 [facility] S. 414.01 Coronary 9:00a Christelle Smith M.D. Atherosclerosis [place] 401.1 Hypertension Benign V45.82 Percutaneous Transluminal Coronary Angioplas Postsurg Status 272.4 Hyperlipidemia Other Unspec Office Visit 07/31/2013 [facility] S. 414.01 Coronary 11:00a Christelle Smith M.D. Atherosclerosis [place] 401.1 Hypertension Benign V45.82 Percutaneous Transluminal Coronary Angioplas Postsurg Status 272.4 Hyperlipidemia Other Unspec Office Visit 11/22/2012 [facility] S. 414.01 Coronary 3:30p Christelle Smith M.D. Atherosclerosis [place] 401.1 Hypertension Benign V45.82 Percutaneous Transluminal Coronary Angioplas Postsurg Status 272.4 Hyperlipidemia Other Unspec 794.31 Electrocardiogram (ECG) (EKG) Abnormal Office Visit 02/15/2012 [facility] S. 414.01 Coronary 10:40a Cardiology Maghaydah, M.D. Atherosclerosis [place] 401.1 Hypertension Benign V45.82 Percutaneous Transluminal Coronary Angioplas Postsurg Status 272.4 Hyperlipidemia Other Unspec Office Visit 10/19/2011 Orthopedic Toby Carrillo, 836.0 Dislocation Knee 9:30a Services Of Sera Tear Of Medial C.M.A. Cartilage Or Meniscus Curr Office Visit 09/10/2011 Orthopedic Yinka Krueger 836.0 Dislocation Knee 11:00a Services Of Samantha Tear Of Medial C.M.A. RPA-C Cartilage Or Meniscus Curren Office Visit 08/14/2011 Saira Cruz 427.81 Sinoatrial Node 3:00p Cardiology Parmenter, Dysfunction N.P. Office Visit 08/10/2011 [facility]opedic Toby Carrillo, 836.0 Dislocation Knee 3:00p Services Of Sera Tear Of Medial C.M.A. Cartilage Or Meniscus Curr Office Visit 06/30/2011 Saira Canchola S. 414.01 Coronary 3:30p Eboni Fournier M.D. [place] 401.1 Hypertension Benign V45.82 Percutaneous Transluminal Coronary Angioplas Postsurg Status 272.4 Hyperlipidemia Other Unspec 794.31 Electrocardiogram (ECG) (EKG) Abnormal 780.4 Dizziness & Giddiness Office Visit 10/13/2010 Saira Canchola S. 414.01 Coronary 4:00p Christelle Smith M.D. Atherosclerosis [place] 401.1 Hypertension Benign V45.82 Percutaneous Transluminal Coronary Angioplas Postsurg Status 272.4 Hyperlipidemia Other Unspec Office Visit 09/03/2010 Saira Canchola S. 414.01 Coronary 11:30a Christelle Smith M.D. Atherosclerosis [place] 401.1 Hypertension Benign 272.4 Hyperlipidemia Other Unspec V45.82 Percutaneous Transluminal Coronary Angioplas Postsurg Status Office Visit 04/01/2010 Saira Canchola S. 414.01 Coronary 4:00p Christelle Smith M.D. Atherosclerosis [place] 401.1 Hypertension Benign 272.4 Hyperlipidemia Other Unspec V45.82 Percutaneous Transluminal Coronary Angioplas Postsurg Status Office Visit 11/04/2009 Saira Canchola S. 414.01 Coronary 2:20p Christelle Smith M.D. Atherosclerosis [place] 401.1 Hypertension Benign 272.4 Hyperlipidemia Other Unspec Office Visit 10/23/2009 3:45p Orthopedic Dirk Gerardo, 836.0 Dislocation Knee Services Of Sera Tear Of Medial C.M.A. Cartilage Or Meniscus Curren 844.1 Sprains & Strains Knee Medial Collateral Ligament Office 10/11/2009 Orthopedic Renée, 836.0 Dislocation Knee Visit 4:00p Services Of Julien Tear Of Medial C.M.A. R.S.A.-O Cartilage Or Meniscus Curren Office 09/04/2009 Orthopedic Renée, 844.1 Sprains & Strains Visit 3:00p Services Of Henryopher, Knee Medial C.M.A. R.S.A.-O Collateral Ligament Office 08/29/2009 Saira Canchola S. 414.01 Coronary Visit 3:20p Christelle Smith M.D. Atherosclerosis [place] 401.1 Hypertension Benign V45.82 Percutaneous Transluminal Coronary Angioplas Postsurg Status 272.4 Hyperlipidemia Other Unspec Office Visit 11/29/2008 Saira Canchola S. 414.01 Coronary 3:20p Christelle Smith M.D. Atherosclerosis [place] V45.82 Percutaneous Transluminal Coronary Angioplas Postsurg Status 401.1 Hypertension Benign 272.4 Hyperlipidemia Other Unspec Office Visit 06/12/2008 Saira Canchola S. 401.1 Hypertension 9:10a Christelle Smith M.D. Benign 272.4 Hyperlipidemia Other Unspec 414.01 Coronary Atherosclerosis [place] V45.82 Percutaneous Transluminal Coronary Angioplas Postsurg Status Office Visit 11/08/2007 Saira Canchola S. 414.01 Coronary 3:20p Christelle Smith M.D. Atherosclerosis [place] 401.1 Hypertension Benign 272.4 Hyperlipidemia Other Unspec V45.82 Percutaneous Transluminal Coronary Angioplas Postsurg Status 794.31 Electrocardiogram (ECG) (EKG) Abnormal Office Visit 04/28/2007 Saira Canchola S. 414.01 Coronary 2:40p Christelle Smith M.D. Atherosclerosis [place] 401.1 Hypertension Benign 272.4 Hyperlipidemia Other Unspec V45.82 Percutaneous Transluminal Coronary Angioplas Postsurg Status 427.69 Premature Beats Other 794.31 Electrocardiogram (ECG) (EKG) Abnormal Office Visit 01/13/2007 Saira Canchola S. 414.01 Coronary 3:40p Cardiology Sera Smith Atherosclerosis [place] 401.1 Hypertension Benign 272.4 Hyperlipidemia Other Unspec V45.82 Percutaneous Transluminal Coronary Angioplas Postsurg Status Office Visit 10/07/2006 Saira Canchola S. 414.01 Coronary 3:00p Cardiology Sera Smith Atherosclerosis [place] 427.69 Premature Beats Other 272.4 Hyperlipidemia Other Unspec Office Visit 06/08/2006 Saira Canchola S. 414.01 Coronary 2:00p Cardiology Sera Smith Atherosclerosis [place] 401.1 Hypertension Benign 272.4 Hyperlipidemia Other Unspec Office Visit 03/09/2006 Saira Canchola S. 414.01 Coronary 2:40p Cardiology Sera Smith Atherosclerosis [place] 401.1 Hypertension Benign 272.4 Hyperlipidemia Other Unspec Office Visit 02/11/2006 8:30a [facility]ika S. 786.50 Pain Chest Sera Smith Unspec 794.31 Electrocardiogram (ECG) (EKG) Abnormal 794.30 Cardiovascular Function Study Unspec Abnormal 401.0 Hypertension Malignant Plan of Treatment 10/17/2018 - Jesika Smith M.D.I25.10 Atherosclerotic heart disease of [place] coronary artery withFollow up:one yr ovI10 Essential (primary) [id number] Coronary angioplasty [id number] Hyperlipidemia, unspecified
[2018-10-29 10:20] VITALS: BP 151/76
--- NOTE | 2018-10-29 11:12 | UC ---
Respiratory Complaint HPI - HPI Summary HPI Summary: 73 year old male presents with mild congestion, cough- intermittently productive , fatigue, body aches, GI= nausea/ indigestion. S/S x 3 days. recently sick with bronchitis. no fever, chills. denies sinus pain, throat pain, ear pain NO SOB - History of Current Complaint Chief Complaint: UCGeneralIllness Stated Complaint: THROAT,SINUSES Time Seen by Provider: 10/29/18 10:21 Hx Obtained From: Patient Onset/Duration: Sudden Onset, Lasting Days - x 3 days Timing: Constant Severity Initially: Mild Severity Currently: None Pain Intensity: 0 Pain Scale Used: 0-10 Numeric Character: Cough: Productive Aggravating Factors: Deep Breaths - Allergies/Home Medications Allergies/Adverse Reactions: Allergies Allergy/AdvReac Type Severity Reaction Status Date / Time No Known Allergies Allergy Verified 10/29/18 10:20 Home Medications: Home Medications Chitina-3 Fatty Acids/Fish Oil [Fish Oil 1,000 mg Softgel] 1 each PO DAILY [History Confirmed 10/29/18] PMH/Surg Hx/FS Hx/Imm Hx Previously Healthy: Yes - Surgical History Surgical History: Yes Surgery Procedure, Year, and Place: 2 knee surgeries,. 2 hernia operations. 7 cardiac stents - Family History Known Family History: Positive: Cardiac Disease, Hypertension - Social History Alcohol Use: None Substance Use Type: None Smoking Status (MU): Former Smoker Type: Cigarettes When Did the Patient Quit Smoking/Using Tobacco: 25 years ago Review of Systems All Other Systems Reviewed And Are Negative: Yes Constitutional: Positive: Fatigue Respiratory: Positive: Cough Is Patient Immunocompromised?: No Physical Exam Triage Information Reviewed: Yes Appearance: No Pain Distress, Well-Nourished, Ill-Appearing - mild Vital Signs: Initial Vital Signs Temp 98.9 F 10/29/18 10:17 Pulse 67 10/29/18 10:17 Resp 16 10/29/18 10:17 BP 151/76 10/29/18 10:17 Pulse Ox 97 10/29/18 10:17 Vital Signs Reviewed: Yes Eyes: Positive: Conjunctiva Clear ENT: Positive: Pharynx normal, TMs normal, Uvula midline. Negative: TM bulging , TM dull, TM red, Tonsillar swelling, Tonsillar exudate, Sinus tenderness Dental Exam: Normal Neck exam: Normal Neck: Positive: Supple, Nontender, No Lymphadenopathy. Negative: Nuchal Rigidity, Enlarged Nodes @ Respiratory: Positive: Chest non-tender, Lungs clear, Normal breath sounds, No respiratory distress, No accessory muscle use. Negative: Crackles, Rhonchi, Stridor, Wheezing, Expiration Cardiovascular: Positive: RRR, No Murmur Musculoskeletal Exam: Normal Psychological Exam: Normal Skin Exam: Normal Respiratory Course/Dx - Course Course Of Treatment: - Likely viral bronchitis- conservative treatment including increasing fluids, over the counter medications such as cough medication, throat lozenges, humidifer at night to help with symptoms - GO to ER with shortness of breath, fever > 101, chest pain - Symptoms likely to continue for 5-7 days since onset. - Differential Dx/Diagnosis Differential Diagnosis/HQI/PQRI: Lower Resp Infection Provider Diagnosis: Viral URI Discharge - Sign-Out/Discharge Documenting (check all that apply): Patient Departure All imaging exams completed and their final reports reviewed: No Studies - Discharge Plan Condition: Good Disposition: HOME Patient Education Materials: Viral Syndrome (ED) Referrals: Eric Renee MD [Primary Care Provider] - Additional Instructions: - Likely viral bronchitis- conservative treatment including increasing fluids, over the counter medications such as cough medication, throat lozenges, humidifer at night to help with symptoms - GO to ER with shortness of breath, fever > 101, chest pain - Symptoms likely to continue for 5-7 days since onset. - Billing Disposition and Condition Condition: GOOD Disposition: Home
== END 2018-10-29 11:15 | disposition home or self-care (01) ==
LOC: UCEAST 09:58
DX: J06.9 Acute upper respiratory infection, unspecified (principal); Z95.5 Presence of coronary angioplasty implant and graft; Z87.891 Personal history of nicotine dependence
CPT/HCPCS: 99211; G0463

== ENCOUNTER 2018-11-13 14:56 | Emergency (ER) | payer MEDICARE, OTHER ==
[2018-11-13 15:03] VITALS: BP 165/93
--- NOTE | 2018-11-13 15:56 | UC ---
Abdominal Pain Male HPI - HPI Summary HPI Summary: Patient with a complex medical history including 7 cardiac stents, hypertension , borderline diabetes, and an abdominal aneurysm that is getting annual evaluation. Patient states for past 3 weeks he was diagnosed with viral bronchitis and had malaise. Patient states he started to feel better until last Wednesday when he had copious watery diarrhea. No blood no blood. Patient states this time he just has not felt well. Patient states his belly feels diffusely discomfort. Patient has had belching. Patient with nausea. Patient's been forcing himself to eat and drink. Patient has not had a bowel movement since this time. No fever. Patient states he just feels is not getting better. Patient's medications reviewed this visit. pt has had normal colonoscopies - History of Current Complaint Chief Complaint: UCGI Stated Complaint: ABD PAIN Time Seen by Provider: 11/13/18 15:14 Hx Obtained From: Patient, Medical Records - PT with 4.4cm AAA 10/2017 Severity Initially: Mild Severity Currently: None Pain Intensity: 0 Pain Scale Used: 0-10 Numeric - Allergies/Home Medications Allergies/Adverse Reactions: Allergies Allergy/AdvReac Type Severity Reaction Status Date / Time No Known Allergies Allergy Verified 10/29/18 10:20 PMH/Surg Hx/FS Hx/Imm Hx Previously Healthy: Yes Endocrine History: Diabetes Cardiovascular History: Cardiac Disease, Hypertension - Surgical History Surgical History: Yes Surgery Procedure, Year, and Place: 2 knee surgeries,. 2 hernia operations. 7 cardiac stents - Family History Known Family History: Positive: Cardiac Disease, Hypertension - Social History Occupation: Retired Lives: With Family Alcohol Use: None Substance Use Type: None Smoking Status (MU): Former Smoker Type: Cigarettes When Did the Patient Quit Smoking/Using Tobacco: 25 years ago Review of Systems All Other Systems Reviewed And Are Negative: Yes Constitutional: Positive: Fatigue Skin: Positive: Negative Eyes: Positive: Negative ENT: Positive: Negative Respiratory: Positive: Negative Cardiovascular: Positive: Negative Gastrointestinal: Positive: Abdominal Pain, Diarrhea, Other - belching, flatus Physical Exam - Summary Physical Exam Summary: Vital Signs Reviewed: Yes A+Ox3, no distress Eyes: Conjunctiva Clear, MARIANGEL. EOM intact and full ENT: Hearing grossly normal TM x 2 clear, mmoist, uvula midline, no exudate, no erythema Neck: Positive: Supple Respiratory: Positive: No respiratory distress, No accessory muscle use + CTA throughout no w/r Cardiovascular: RRR nl s1, s2 no m/r CBT <2 sec abd soft Dec BS, mild diffuse tendernes, nd no guarding, no distension Musculoskeletal Exam: [place] x 4 without difficulty Strength Intact, ROM Intact Neurological: Positive: Alert, + sensation throughout Psychological: Positive: Normal Response To Family Skin: Positive: no rash, no ecchymosis Triage Information Reviewed: Yes Vital Signs: Initial Vital Signs Temp 98.3 F 11/13/18 14:59 Pulse 64 11/13/18 14:59 Resp 16 11/13/18 14:59 BP 165/93 11/13/18 14:59 Pulse Ox 99 11/13/18 14:59 Abd Pain Male Course/Dx - Course Course Of Treatment: Patient presents to urgent care with his . Patient reports several days of increasing malaise, diffuse belly pain, belching. Patient states he watery diarrhea Wednesday nothing since. No recent travel or antibiotic. Patient states he just has no injury G and his belly continues to have mild diffuse discomfort. On exam vital signs are stable. Patient does have mild diffuse discomfort in his belly. Nothing focal on exam. Patient's urinalysis completely normal. After discussing the patient recommended to emergency department for additional evaluation and treatment. This will likely include labs and imaging studies. I did speak to speak called to the charge nurse in the ED who states understanding and awareness of the patient. Patient's will drive him. Pt with elevated BP- h/o same - Differential Dx/Clinical Impression Provider Diagnosis: Abdominal pain Discharge - Sign-Out/Discharge Documenting (check all that apply): Patient Departure All imaging exams completed and their final reports reviewed: No Studies - Discharge Plan Condition: Stable Disposition: HOME-RECOMMEND TO ED Patient Education Materials: Acute Abdominal Pain (ED) Referrals: Eric Renee MD [Primary Care Provider] - Additional Instructions: The doctor that evaluated you today thinks that you need additional testing that can be completed the emergency department. It is recommended that you go directly to emergency department for further evaluation. This evaluation may include blood work or imaging. This testing will be directed and decided by the provider that evaluate you at the emergency department. If pain becomes worse, you feel lightheaded, you have uncontrolled vomiting, or you have any other concerns while you are being driven to emergency department as recommended to carson and contact 911. - Billing Disposition and Condition Condition: STABLE Disposition: Home-Recommend to ED
== END 2018-11-13 15:48 | disposition home health service (06) ==
LOC: UCEAST 14:56
DX: R10.9 Unspecified abdominal pain (principal); R53.81 Other malaise; R14.2 Eructation; I10 Essential (primary) hypertension; R73.03 Prediabetes; Z87.891 Personal history of nicotine dependence; Z95.5 Presence of coronary angioplasty implant and graft; N39.0 Urinary tract infection, site not specified; I71.4 Abdominal aortic aneurysm, without rupture; R53.1 Weakness; R00.1 Bradycardia, unspecified
CPT/HCPCS: 81003; 99212; G0463

== ENCOUNTER 2018-11-13 16:06 | Emergency (ER) | payer MEDICARE, OTHER ==
--- NOTE | 2018-11-13 16:28 | ED ---
Abdominal Pain/Male - HPI Summary HPI Summary: This patient is a 73 year old M presenting to ED with a chief complaint of abdominal pain since 3-4 days ago. The CC is described as dull. Patient had diarrhea on 11/10 and 11/11 but no bowel movements since. Prior to the diarrhea, patient had viral bronchitis for two weeks. The patient rates the pain 5/10 in severity. Symptoms aggravated by nothing. Symptoms alleviated by nothing. Patient reports generalized weakness, excessive burping, flatulence, nausea, decreased appetite. Patient denies vomiting, CP. Patient still has appendix. PMHx of 7 stents in heart, aortic aneurysm of ~2cm per patient, HTN. FHx for cardiac disease, HTN. Patient does not use alcohol or substances, but is a former smoker. - History of Current Complaint Chief Complaint: EDAbdPain Stated Complaint: ABD PAIN PER PT Time Seen by Provider: 11/13/18 16:13 Hx Obtained From: Patient Onset/Duration: Lasting Days - 3-4 days ago, Still Present Timing: Constant Severity Initially: Moderate Severity Currently: Moderate Pain Intensity: 5 Pain Scale Used: 0-10 Numeric Radiates: No Character: Dull Aggravating Factor(s): Nothing Alleviating Factor(s): Nothing Associated Signs And Symptoms: Positive: Decreased Appetite, Nausea, Diarrhea - 3-4 days ago, no bowel movements since diarrhea stopped, Other - Generalized weakness, excessive burping, flatulence. Negative: Chest Pain, Vomiting - Allergies/Home Medications Allergies/Adverse Reactions: Allergies Allergy/AdvReac Type Severity Reaction Status Date / Time No Known Allergies Allergy Verified 11/13/18 16:12 PMH/Surg Hx/FS Hx/Imm Hx Endocrine/Hematology History: Denies: Hx Diabetes, Hx Thyroid Disease Cardiovascular History: Reports: Hx Hypertension - ON MEDICATION Denies: Hx Pacemaker/ICD Respiratory History: Denies: Hx Asthma, Hx Chronic Obstructive Pulmonary Disease (COPD) GI History: Denies: Hx Ulcer History: Denies: Hx Renal Disease Sensory History: Denies: Hx Hearing Aid Psychiatric History: Denies: Hx Panic Disorder - Cancer History Cancer Type, Location and Year: cholesterol - Surgical History Surgery Procedure, Year, and Place: 2 knee surgeries,. 2 hernia operations. 7 cardiac stents Infectious Disease History: No Infectious Disease History: Reports: Hx Shingles - 2017. since vaccinated Denies: Hx Hepatitis, Hx Human Immunodeficiency Virus (HIV), History Other Infectious Disease, Traveled Outside the [place] in Last 30 Days - Family History Known Family History: Positive: Cardiac Disease, Hypertension - Social History Alcohol Use: None Hx Substance Use: No Substance Use Type: Reports: None Hx Tobacco Use: Yes Smoking Status (MU): Former Smoker Type: Cigarettes Review of Systems All Other Systems Reviewed And Are Negative: Yes Physical Exam - Summary Physical Exam Summary: Appearance: Well appearing, no pain distress Skin: warm, dry, reflects adequate perfusion Head/face: normal Eyes: EOMI, MARIANGEL ENT: normal Neck: supple, non-tender Respiratory: CTA, breath sounds present Cardiovascular: RRR, pulses symmetrical Abdomen: LLQ tenderness Musculoskeletal: normal, strength/ROM intact Neuro: normal, sensory motor intact, A&Ox3 Triage Information Reviewed: Yes Vital Signs On Initial Exam: Initial Vitals Temp Pulse Resp BP Pulse Ox 98.5 F 60 18 160/87 97 11/13/18 16:08 11/13/18 16:08 11/13/18 16:08 11/13/18 16:08 11/13/18 16:08 Vital Signs Reviewed: Yes Diagnostics - Vital Signs Vital Signs Temp Pulse Resp BP Pulse Ox 11/13/18 16:08 98.5 F 60 18 160/87 97 - Laboratory Result Diagrams: 11/13/18 16:58 11/13/18 16:58 Lab Statement: Any lab studies that have been ordered have been reviewed, and results considered in the medical decision making process. - Radiology CXR Radiology Interpretation Completed By: Radiologist Summary of Radiographic Findings: No evidence for acute intrathoracic disease. Dr. Barillas has reviewed this radiology report. - CT A/P CT Interpretation Completed By: Radiologist Summary of CT Findings: 1. No CT findings to correlate with patient's symptomatology. Specifically no diverticulitis. 2. Infrarenal fusiform aortic aneurysm. No fracture. Dr. Barillas has reviewed this radiology report. - EKG 1619 Cardiac Rate: Bradycardia - 56 BPM EKG Rhythm: Sinus Bradycardia Summary of EKG Findings: Sinus bradycardia at 56 BPM, no acute changes. Re-Evaluation - Re-Evaluation First Eval Re-Evaluation Time: 19:26 Comment: Discussed results with patient. Patient will be discharged home with dx of UTI. Patient understands and agrees with this plan. Abdominal Pain Male Course/Dx - Course Course Of Treatment: This patient is a 73 year old M presenting to ED with a chief complaint of abdominal pain since 3-4 days ago. In the ED, patient received fluids. Blood work/UA obtained. EKG revealed sinus bradycardia at 56 BPM, no acute changes. CXR revealed no evidence for acute intrathoracic disease. CT A/P revealed 1. No CT findings to correlate with patient's symptomatology. Specifically no diverticulitis. 2. Infrarenal fusiform aortic aneurysm. No fracture. Patient was given Cipro. I discussed results with patient , and he reports feeling better. He is hemodynamically stable and safe for discharge with diagnosis of UTI. Strict return precautions given and he will otherwise follow up with his PCP. - Diagnoses Differential Diagnosis/HQI/PQRI: Bowel Obstruction, Constipation, Diverticulitis , Pancreatitis, Renal Colic, Urinary Tract Infection Provider Diagnoses: UTI (urinary tract infection) Discharge - Sign-Out/Discharge Documenting (check all that apply): Patient Departure - Discharge Patient Received Moderate/Deep Sedation with Procedure: No - Discharge Plan Condition: Stable Disposition: HOME Prescriptions: Ciprofloxacin TAB* [Cipro 500 MG TAB*] 500 mg PO BID #14 tab Patient Education Materials: Urinary Tract Infection in Men (ED) Referrals: Eric Renee MD [Primary Care Provider] - 3 Days Additional Instructions: Follow-up with your primary care physician in 3 days. RETURN TO THE ER FOR WORSENING OR CHANGING SYMPTOMS. - Billing Disposition and Condition Condition: STABLE Disposition: Home - Attestation Statements Document Initiated by Nilda: Yes Documenting Scribe: Eder Ramsey Provider For Whom Nilda is Documenting (Include Credential): Raul Barillas MD Scribe Attestation: IEder, scribed for Raul Barillas MD on 11/13/18 at 1946. Scribe Documentation Reviewed: Yes Provider Attestation: The documentation as recorded by the Eder galarza accurately reflects the service I personally performed and the decisions made by me, Raul Barillas MD Status of Scribe Document: Viewed
[2018-11-13] MEDS ORDERED: NS 0.9% 1000 ML** 1,000 ML IV SCH (16:30)
[2018-11-13 17:08] LABS: ABS Basophils 0.1 10^3/ul (0-0.2); ABS Eosinophils 0.3 10^3/ul (0-0.6); ABS Lymphocytes 2.2 10^3/ul (1.0-4.8); ABS Monocytes 0.8 10^3/ul (0-0.8); Eosinophil % 4.4 %; Hematocrit 43 % (42-52); Hemoglobin 14.7 g/dL (14.0-18.0); Lymphocyte % 29.8 %; Mean Corpuscular HGB Conc 35 g/dL (31-36); Mean Corpuscular Hemoglobin 30 pg (27-31); Mean Corpuscular Volume 88 fL (80-94); Mean Platelet Volume 6.8 fL (7.4-10.4); Nucleated Red Blood Cells % 0.1; Platelet Count 296 10^3/uL (150-450); Red Blood Count 4.86 10^6 /uL (4.18-5.48); Red Cell Distribution Width 13 % (10.5-15); White Blood Count 7.4 10^3/uL (3.5-10.8)
[2018-11-13 17:17] LABS: Activated Partial Thrombo Time 32.6 seconds (26.0-36.3); INR 1.03 (0.82-1.09)
[2018-11-13 17:30] LABS: Albumin 3.7 g/dL (3.2-5.2); BUN/Creatinine Ratio 26.5 (8-20); C Reactive Protein 3.16 mg/L (<8.01); Calcium 8.7 mg/dL (8.6-10.3); EGFR African American 110.2 (>60); EGFR Non-African American 91.1 (>60); Globulin 3.7 g/dL (2-4); Potassium 4.1 mmol/L (3.5-5.0); Total Bilirubin 0.8 mg/dL (0.2-1.0); Total Protein 7.4 g/dL (6.4-8.9)
[2018-11-13] MEDS ORDERED: Iohexol 300* (CONTRAST) 10 ML SDV IV ONE (17:56)
[2018-11-13 18:07] LABS: Urine Appearance Clear; Urine Bilirubin Negative (Negative); Urine Blood Negative (Negative); Urine Color Yellow; Urine Glucose Negative (Negative); Urine Ketones Negative (Negative); Urine Nitrite Negative (Negative); Urine Protein Negative (Negative); Urine Specific Gravity 1.013 (1.010-1.030); Urine Urobilinogen Negative (Negative)
[2018-11-13] MEDS ORDERED: Ciprofloxacin TAB* 500 MG PO ONE (19:34)
[2018-11-13 19:56] VITALS: BP 149/80
== END 2018-11-13 19:55 | disposition home or self-care (01) ==
LOC: ED 16:06
DX: N39.0 Urinary tract infection, site not specified (principal); I71.4 Abdominal aortic aneurysm, without rupture; R53.1 Weakness; R14.2 Eructation; R00.1 Bradycardia, unspecified; I10 Essential (primary) hypertension; Z95.5 Presence of coronary angioplasty implant and graft; Z87.891 Personal history of nicotine dependence
CPT/HCPCS: 36415; 71045; 74177; 80053; 81003; 83605; 83690; 84484; 85025; 85610; 85730; 86140; 93005; 99283; A9270-GY; Q9967

== ENCOUNTER → 2019-01-18 09:59 | Day surgery (SDC) | payer MEDICARE, OTHER ==
[~2019-01-18 09:59] MED LIST: Acetaminophen TAB* 325 MG PO PRN; Buffered Lidocaine 1% SYRIN* 1 ML/SYRINGE INTRADERM ONE; Dexamethasone IV* 4 MG/ML 1 ML (4 MG) ONE; DiMENhydriNATE IV* 50 MG/ML VIAL IV PUSH PRN; EPHEDrine (Pressors)* 50 MG/ML VIAL ONE; Ketorolac INJ* 30 MG/ML 1 ML VIAL ONE; Lactated Ringers 1000 ML Bag* 1,000 ML IV SCH; Metoclopramide IV* 5 MG/ML 2 ML VIAL ONE; Midazolam* 1 MG/ML 2 ML VIAL (2 MG) ONE; Naloxone* 0.4 MG/ML 1 ML VIAL IV PRN; Ondansetron INJ* 2 MG/ML VIAL ONE; ROPIVACAINE 5 MG/ML 30 ML BTL (0.5%) ONE; Rocuronium* 10 MG/ML VIAL ONE; Ropivacaine 0.2% * 2 MG/ML VIAL ONE; Sugammadex * 200 MG/2 ML VIAL IV PUSH ONE; ceFAZolin 2 GM in NS PREMIX(*) 2 GM/100 ML BAG IVPB ONE; fentaNYL* 50 MCG/ML 2 ML VIAL (100 MCG VIAL) IV PRN; fentaNYL* 50 MCG/ML 2 ML VIAL (100 MCG VIAL) ONE; oxyCODONE TAB* 5 MG TAB PO PRN
[2019-01-18 15:39] VITALS: BP 146/76
--- NOTE | 2019-01-18 23:17 | OP ---
CC: PCPDr. Renee * DATE OF OPERATION: 01/18/19 - [facility] DATE OF : 47 ATTENDING SURGEON: Doug Rayo MD EDITOR NEWS: FRAN Cevallos. An secretary administrative assistant was needed for the entirety of the case to help with positioning, retraction, and was utilized throughout all portions of the case. ANESTHESIOLOGIST: Dr. Elizalde. ANESTHESIA: General interscalene block. PRE-OP DIAGNOSES: Right shoulder acromioclavicular joint arthritis, partial tear of the rotator cuff with bicipital tendonitis, superior labral tear from anterior to posterior tear. POST-OP DIAGNOSES: Right shoulder acromioclavicular joint arthritis, partial tear of the rotator cuff with bicipital tendonitis, superior labral tear from anterior to posterior tear. OPERATIVE PROCEDURE: Right shoulder arthroscopy with: 1. Extensive glenohumeral debridement. 2. Subacromial decompression with acromioplasty. 3. Distal clavicle excision. 4. Rotator cuff repair with Regeneten patch. 5. Open biceps tenodesis. COMPLICATIONS: None. ESTIMATED BLOOD LOSS: Minimal. IMPLANTS: Regeneten patch, size medium. INDICATIONS: Cristofer Crane is a 73-year-old male who has had persistent shoulder pain. He has failed conservative management, he elected to proceed with surgical treatment. Risks and benefits were discussed at length and included but are not limited to bleeding; infection; damage to nerves, vessels, surrounding structures; wound nonhealing; persistent pain; need for surgery; scaring; stiffness; incomplete relief of symptoms; and risks of anesthesia. DESCRIPTION OF PROCEDURE: The patient was greeted in the preoperative area by the attending surgeon. Correct extremity was marked. Consent was confirmed. The patient underwent interscalene nerve block by the anesthesiologist after which he was brought back to the operating suite. He was placed in the supine position on the operating table. He then underwent general anesthesia with endotracheal intubation after which he was placed in the left lateral decubitus position with an axillary roll. All bony prominences were padded. He was secured with a pegboard. The right shoulder was then prepped and draped in the usual sterile fashion beginning with chlorhexidine soap, scrub, and alcohol wipe and a final prep with ChloraPrep. After appropriate surgical pause indicating site, side, procedure, administration of antibiotics, the standard posterolateral portal was made using the 11 blade. The scope was then brought out into the joint. The joint was examined, there was synovitis throughout the joint. There was partial thickness tearing of the undersurface of the subscap. There was evidence of a superior labral tear with the biceps instability and then damage to the deja. There were grade 0 to 1 changes in the glenohumeral joint. The anterior, posterior, and superior labrum had unstable fraying. The anterior portal was made in an outside-in fashion and a 5 mm cannula was placed. The shaver was used to debride back the anterior, posterior, superior labrum. Biceps was tenotomized for later tenodesis. The inferior recess was intact. The subscap was intact. Once the intraarticular portion was completed, attention was directed to the subacromial space. With the scope positioned in the subacromial space, the lateral portal was made in an outside-in fashion. There was abundant thick bursa that was present, this was debrided back using the shaver. The inner surface of the acromion was skeletonized using electrocautery device. A 4-0 oval ashley was used to an acromioplasty. Loose tissue and debris was removed and attention was directed to the distal clavicle. The ashley was brought through the anterior portal and the distal clavicle was found to have stenosis and synovitis. The 4-0 oval ashley was then used to do distal clavicle excision, removed approximately 8 mm of the distal clavicle with care to preserve CC ligaments. Once this was confirmed, attention was directed to the subacromial space. The cuff was found to have some partial-thickness tearing on the bursal side. Because there was no full-thickness tear, decision was made to treat this with a Regeneten patch. A size medium Regeneten patch was then brought to the field and placed under arthroscopic visualization. Through a separate stab incision, a cannula was placed for passage of the tendon alva. These were then used to secure the graft medially. Laterally, the bone alva were secured with good purchase. The graft was checked and found to be well positioned and over the rotator cuff tear. The wounds were then copiously irrigated with sterile saline. Attention was directed to the biceps. With the bed airplaned to the right side, the anterior aspect of the shoulder was prepped again using the ChloraPrep. A 15-blade was used to make an incision in line with the biceps tendon. Soft tissues were carefully exposed to the pec tendon which was then elevated. The remainder of the dissection was done bluntly. The groove was palpated biceps were brought though the wound and was found to have synovitis and inflammation. The groove was then prepared in the usual fashion using electrocautery device , red ball rasp, and osteotome. Then, a Q-Fix was deployed with excellent purchase. The sutures were then passed through the biceps approximately 1 cm proximal to the musculotendinous junction in a Vincent-Demond type configuration. Excess stump was excised. The biceps was shuttled back to the wound and secured. The wounds were then copiously irrigated with sterile saline. The anterior wound was closed in layers with 0-Monocryl. The portals were closed with 3-0 nylon. Sterile dressings were applied. Cryo/cuff and UltraSling were applied. He was awoken from anesthesia and transferred to the PACU in stable condition. POSTOPERATIVE PLAN: He will be nonweightbearing. He will be discharged on pain medication. DVT prophylaxis was considered but deferred due to no previous or personal family history. I will see the patient back in 10 to 14 days. [id number]/CPS #: [id number] LEONARDO
== END | disposition home or self-care (01) ==
LOC: OR 09:59
PROVIDERS: ATTEND Orthopaedic Surgery
DX: M75.111 Incomplete rotator cuff tear or rupture of right shoulder, not specified as traumatic (principal); M75.21 Bicipital tendinitis, right shoulder; M19.211 Secondary osteoarthritis, right shoulder; G89.18 Other acute postprocedural pain; I10 Essential (primary) hypertension; I25.10 Atherosclerotic heart disease of native coronary artery without angina pectoris; E78.00 Pure hypercholesterolemia, unspecified; M19.90 Unspecified osteoarthritis, unspecified site; R94.31 Abnormal electrocardiogram [ECG] [EKG]; Z87.891 Personal history of nicotine dependence
CPT/HCPCS: C1713; C1776; J0690; J1100; J1885; J2250; J2405; J2765; J2795; J3010